=== PATIENT | male | born 1960 | race Caucasian/White ===

== ENCOUNTER 2018-08-04 06:37 | Inpatient (IN) | payer BC ==
[2018-07-30 15:56] VITALS: BP 159/91
[~2018-08-04] VITALS: Ht 180.3 cm; Wt 114.5 kg
[~2018-08-04 06:37] MED LIST: AMLO10TA8 PO; ASPI-496 PO; EPINEPHRINE 1 MG/ML, 1ML ONE; EPLE50TA3 PO; ESCI10TA10 PO; ISOS60TA36 PO; KETOROLAC 60 MG/2 ML ONE; OMEP20TA62 PO; POTA20TA14 PO; PRAV40TA2 PO; ROPIvacaine/PF 0.2%, 20 ML ONE; SODIUM CHLORIDE 0.9% 50 ML ONE; TORS20TA2 PO; TRANEXAMIC ACID 100 MG/ML, 10ML ONE
[2018-08-04] MEDS ORDERED: LACTATED RINGERS 1,000 ML IV SCH (07:28)
[2018-08-04] MEDS ORDERED: ACETAMINOPHEN 500 MG TABLET PO ONE (07:30)
[2018-08-04] MEDS ORDERED: ONDANSETRON ODT 8 MG PO ONE (07:30)
[2018-08-04] MEDS ORDERED: GABAPENTIN 300 MG CAPSULE PO ONE (07:30)
[2018-08-04] MEDS ORDERED: MIDAZOLAM 1 MG/ML, 2ML ONE (08:10)
[2018-08-04] MEDS ORDERED: FENTANYL PF 250 MCG/5ML ONE (08:10)
[2018-08-04] MEDS ORDERED: CEFAZOLIN 1,000 MG ONE (09:18)
[2018-08-04] MEDS ORDERED: DEXAMETHASONE 4 MG/ML, 1ML ONE (09:18)
[2018-08-04] MEDS ORDERED: PROPOFOL 50 ML ONE ×2 (09:35→10:25)
[2018-08-04] MEDS ORDERED: MEPERIDINE/PF 25MG/0.5ML IVPush PRN (10:30)
[2018-08-04] MEDS ORDERED: hydrALAzine 20 MG/ML, 1ML IV PRN (10:30)
[2018-08-04] MEDS ORDERED: MIDAZOLAM 1 MG/ML, 2ML IV PRN (10:30)
[2018-08-04] MEDS ORDERED: PROMETHAZINE 25 MG/ML, 1ML IV PRN (10:30)
[2018-08-04] MEDS ORDERED: FENTANYL PF 100 MCG/2ML IV PRN (10:30)
[2018-08-04] MEDS ORDERED: ALBUTEROL/IPRATROPIUM 2.5MG/0.5MG, 3 ML NPPB PRN (10:30)
[2018-08-04] MEDS ORDERED: OXYcodone 5 MG/5 ML ORAL.SOL UDC PO PRN (10:30)
[2018-08-04] MEDS ORDERED: ONDANSETRON 2MG/ML, 2ML IV PRN ×2 (10:30→11:00)
[2018-08-04] MEDS ORDERED: BUPIVACAINE/PF 0.5% ONE (10:33)
[2018-08-04] MEDS ORDERED: SODIUM CHLORIDE 0.9% 1,000 ML IV SCH (10:59)
[2018-08-04] MEDS ORDERED: ALUMINUM/MAG/SIMETHICONE 30 ML UDC PO PRN (11:00)
[2018-08-04] MEDS ORDERED: PROMETHAZINE 25 MG/ML, 1ML IM PRN (11:00)
[2018-08-04] MEDS ORDERED: PROMETHAZINE 12.5 MG SUPP PR PRN (11:00)
[2018-08-04] MEDS ORDERED: BISACODYL 10 MG SUPP PR PRN (11:00)
[2018-08-04] MEDS: KETOROLAC 30 MG/1 ML IV SCH ×3 (11:00→23:08)
[2018-08-04] MEDS ORDERED: ONDANSETRON 4 MG TABLET PO PRN (11:00)
[2018-08-04] MEDS ORDERED: HYDROmorphone 2 MG/ML, 1ML IV PRN (11:00)
[2018-08-04] MEDS ORDERED: MAGNESIUM HYDROXIDE 8%, 30ML UDC PO PRN (11:00)
[2018-08-04] MEDS ORDERED: ZOLPIDEM 5MG TABLET PO PRN (11:00)
[2018-08-04] MEDS ORDERED: SENNA/DOCUSATE TABLET PO PRN (11:00)
[2018-08-04] MEDS ORDERED: DIAZEPAM 5 MG TABLET PO PRN (11:00)
[2018-08-04] MEDS ORDERED: DIPHENHYDRAMINE 25 MG CAPSULE PO PRN (11:00)
[2018-08-04] MEDS ORDERED: ACETAMINOPHEN 650 MG/20.3 ML UDC PO SCH (11:00)
[2018-08-04] MEDS: HYDROmorphone 2 MG/ML, 1ML IVPush PRN ×2 (11:19→11:39)
[2018-08-04] MEDS ORDERED: OXYcodone 5 MG/5 ML ORAL.SOL UDC ONE (11:19)
[2018-08-04] MEDS ORDERED: TRANEXAMIC ACID 1,000 MG in SODIUM CHLORIDE 0.9% 100 ML IVPB ONE (11:30)
[2018-08-04] MEDS ORDERED: HYDROmorphone 1 MG/ML, 1ML ONE (11:38)
[2018-08-04 12:49] VITALS: BP 131/76
[2018-08-04] MEDS: ACETAMINOPHEN 500 MG TABLET PO SCH ×2 (12:49→20:31)
[2018-08-04] MEDS: ASPIRIN 81 MG TABLET EC PO SCH (17:33)
[2018-08-04] MEDS: CEFAZOLIN PMX 2GM/50ML 50 ML IVPB SCH (17:33)
[2018-08-04 18:58] VITALS: BP 119/73
[2018-08-04] MEDS: DOCUSATE 100 MG CAPSULE PO SCH (20:31)
[2018-08-04] MEDS ORDERED: PRAVASTATIN 40 MG TABLET PO SCH (21:00)
[2018-08-04] MEDS: OXYcodone IR 5MG TABLET PO PRN (22:06)
[2018-08-05 00:12] VITALS: BP 132/68
[2018-08-05] MEDS: ACETAMINOPHEN 500 MG TABLET PO SCH ×2 (01:44→07:59)
[2018-08-05] MEDS: CEFAZOLIN PMX 2GM/50ML 50 ML IVPB SCH (01:44)
[2018-08-05] MEDS: KETOROLAC 30 MG/1 ML IV SCH ×2 (05:00→11:00)
[2018-08-05] MEDS: ASPIRIN 81 MG TABLET EC PO SCH (05:39)
[2018-08-05] MEDS: OXYcodone IR 5MG TABLET PO PRN (05:39)
[2018-08-05] MEDS ORDERED: DEXAMETHASONE 4 MG/ML, 1ML IVPush SCH (06:00)
[2018-08-05] MEDS ORDERED: OMEPRAZOLE 20 MG CAPSULE.DR PO SCH (07:30)
[2018-08-05 07:46] VITALS: BP 129/71
[2018-08-05] MEDS: DOCUSATE 100 MG CAPSULE PO SCH (08:00)
[2018-08-05] MEDS ORDERED: TORSEMIDE 20 MG TABLET PO SCH (09:00)
[2018-08-05] MEDS ORDERED: POTASSIUM CHLORIDE 20 MEQ TAB.ER.PRT PO SCH (09:00)
[2018-08-05] MEDS ORDERED: AMLODIPINE 10 MG TAB PO SCH (09:00)
[2018-08-05] MEDS ORDERED: ESCITALOPRAM 10MG TABLET PO SCH (09:00)
[2018-08-05] MEDS ORDERED: EPLERENONE 50 MG TABLET PO SCH (09:00)
[2018-08-05] MEDS ORDERED: ISOSORBIDE MONONITRATE ER 60 MG TABLET PO SCH (09:00)
[2018-08-05] MEDS ORDERED: MULTIVITAMINS/MINERALS TABLET PO SCH (09:00)
== END 2018-08-05 11:27 | disposition home or self-care (01) | DRG 470 ==
LOC: OUT 06:37 → ORIP 10:59 → 4NOR 12:41 → DCLOUNGE 08-05 11:20
PROVIDERS: ADMIT Orthopaedic Surgery; ATTEND Orthopaedic Surgery
PROC: 3E0T3BZ Introduction of Anesthetic Agent into Peripheral Nerves and Plexi, Percutaneous Approach (ICD-10-PCS; 2018-08-04)
PROC: 5A09357 Assistance with Respiratory Ventilation, Less than 24 Consecutive Hours, Continuous Positive Airway Pressure (ICD-10-PCS; 2018-08-04)
PROC: 0SRC069 Replacement of Right Knee Joint with Oxidized Zirconium on Polyethylene Synthetic Substitute, Cemented, Open Approach (ICD-10-PCS; principal; 2018-08-04 09:45)
DX: M17.11 Unilateral primary osteoarthritis, right knee (principal); I50.32 Chronic diastolic (congestive) heart failure; I25.10 Atherosclerotic heart disease of native coronary artery without angina pectoris; I10 Essential (primary) hypertension; G47.33 Obstructive sleep apnea (adult) (pediatric); Z95.5 Presence of coronary angioplasty implant and graft; K21.9 Gastro-esophageal reflux disease without esophagitis; E78.5 Hyperlipidemia, unspecified; F32.9 Major depressive disorder, single episode, unspecified
CPT/HCPCS: 36415; 85014; 85018; 87081; C1713; G0378; J0171; J0690; J1100; J1170; J1885; J2250; J2405; J2704; J2795; J3010; J3490; Q0162; C1776; J7120